=== PATIENT | female | born 1990 | race Caucasian/White ===

== ENCOUNTER 2018-11-17 13:27 | Emergency (ER) | payer SELFPAY ==
[~2018-11-17] VITALS: Ht 154.9 cm; Wt 61.2 kg
--- NOTE | 2018-11-17 13:45 | NUR ---
ED Nurse Note: MD at bedside. Patient also mentioned that she had episodes of vomiting x3 and also diziness when getting up and walking fast.
--- NOTE | 2018-11-17 13:45 | NUR ---
ED Nurse Note: Patient walked in to ER. Per patient after she was feeding her dog, she stepped back not realizing that there is a step behind her. She stated that she tripped and fall and landed her her back of her head first. She said it was a hard fall. Patient noted slight redness on her parietal area and pain of 6/10.
[2018-11-17 13:50] VITALS: BP 110/86
--- NOTE | 2018-11-17 13:58 | NUR ---
ED Nurse Note: Patient was brought to CT scan for CT head
--- NOTE | 2018-11-17 14:10 | NUR ---
ED Nurse Note: Patient came back to the room from CT room
--- NOTE | 2018-11-17 14:15 | Emergency Room Report ---
History of Present Illness General Chief Complaint: Multiple Trauma/Fall Source: Patient Present Illness HPI 27-year-old female presents to the emergency department complaining of 6 out of 10 severity posterior head pain, tender, smiling in addition to dizziness, nausea, vomiting, foggy mentation status post acute head injury when she fell off of her porch and hit her head on the concrete ground. Denies LOC. Patient denies open wounds or bleeding she denies taking blood thinning medications. Patient denies midline neck or back pain. Denies numbness tingling or loss of sensation or gross motor movements of the extremities, incontinence of bowel or bladder. Denies CP, Palpitations,AMS, dizziness, Changes in Vision, weakness or a sudden severe headache. Allergies: Coded Allergies: No Known Allergies (Unverified , 11/17/18) Patient History Past Medical History: see triage record Past Surgical History: none Pertinent Family History: none Now: No Immunizations: UTD Reviewed Nursing Documentation: PMH: Agreed; PSxH: Agreed Nursing Documentation-PMH Past Medical History: No Stated History Review of Systems All Other Systems: negative except mentioned in HPI Physical Exam Vital Signs Date Time Temp Pulse Resp B/P (MAP) Pulse Ox O2 Delivery O2 Flow Rate FiO2 11/17/18 13:43 97.9 95 16 107/74 (85) 96 Room Air Sp02 EP Interpretation: reviewed, normal General Appearance: no apparent distress, alert, GCS 15, non-toxic Head: normocephalic, other - TTP, Swelling to the occipetal right side. Eyes: bilateral eye normal inspection, bilateral eye PERRL, bilateral eye EOMI ENT: hearing grossly normal, normal voice Neck: full range of motion, no bony tend Respiratory: lungs clear, normal breath sounds, speaking full sentences Cardiovascular #1: regular rate, rhythm Genitourinary: normal inspection Musculoskeletal: back normal, gait/station normal, normal range of motion, non- tender Neurologic: alert, oriented x3, responsive, motor strength/tone normal, sensory intact, speech normal, no pronator, grossly normal, other - notable delay in response time. , grossly normal Psychiatric: judgement/insight normal Skin: other - mild swelling/ttp/ Soft tissue of the posterior scalp. Lymphatic: no adenopathy Medical Decision Making PA Attestation Dr. Jean Baptiste Is my supervising Physician whom patient management has been discussed with. Diagnostic Impression: Primary Impression: Concussion Qualified Codes: S06.0X0A - Concussion without loss of consciousness, initial encounter ER Course 27-year-old female presents to the emergency department complaining of 6 out of 10 severity posterior head pain, tender, smiling in addition to dizziness, nausea, vomiting, foggy mentation status post acute head injury when she fell off of her porch and hit her head on the concrete ground. Denies LOC. Patient denies open wounds or bleeding she denies taking blood thinning medications. Patient denies midline neck or back pain. Denies numbness tingling or loss of sensation or gross motor movements of the extremities, incontinence of bowel or bladder. Denies CP, Palpitations,AMS, dizziness, Changes in Vision, weakness or a sudden severe headache. Ddx considered but are not limited to AHI, SAH, Subudral hematoma, Fracture, dislocation, contusion, concussion Sprain/Strain/Spasm, hematoma Vital signs: are WNL, pt. is afebrile H&PE are most consistent with contusion, no evidence of focal neurological deficit, no loss of consciousness. ORDERS: - CT HEAD NO CONTRAST: No acute process ED INTERVENTIONS: -Tylenol PO Pt. Education: Discussed red flag symptoms to keep an eye out for that would indicate prompt return to the ED. d/w pt. avoidance of additional head trauma for several weeks. DISCHARGE: At this time pt. is stable for d/c to home. Will provide printed patient care instructions, and any necessary prescriptions. Care plan and follow up instructions have been discussed with the patient prior to discharge. CT/MRI/US Diagnostic Results CT/MRI/US Diagnostic Results : Imaging Test Ordered: CT HEAD NO CONTRAST Impression " No evidence of acute fracture, hemorrhage, or intracranial process". Per official radiology report- Please see report for specific details. Last Vital Signs Date Time Temp Pulse Resp B/P (MAP) Pulse Ox O2 Delivery O2 Flow Rate FiO2 11/17/18 13:43 97.9 95 16 107/74 (85) 96 Room Air Status: improved Disposition: HOME, SELF-CARE Condition: Stable Scripts Ondansetron Odt* (ZOFRAN ODT*) 4 Mg Tab.rapdis 4 MG BC EVERY 6 HOURS PRN for Nausea & Vomiting, #10 TAB 0 Refills Prov: Dorina Lindo 11/17/18 Acetaminophen* (TYLENOL EXTRA STRENGTH*) 500 Mg Tablet 500 MG ORAL Q6H, #30 TAB 0 Refills Prov: Dorina Lindo 11/17/18 Referrals: NOT CHOSEN IPA/MD,REFERRING (PCP) Departure Forms: Return to Work Return to Work Date: Nov 20, 2018 Work Restrictions: None Return to Full Activity: Nov 20, 2018 Patient Instructions: Concussion, Adult Additional Instructions: Take medications as directed. Follow up with a Primary Care Provider or Neurologist in 3-5 days, even if your symptoms have resolved. --Please review list of primary care clinics, if you do not already have a primary care provider Return sooner to ED if new symptoms occur, or current symptoms become worse. - Please note that this Emergency Department Report was dictated using [employer]bitclass[employer] aide technology software, occasionally this can lead to erroneous entry secondary to interpretation by the dictation equipment. Dorina Lindo Nov 17, 2018 14:15
--- NOTE | 2018-11-17 14:43 | Diagnostic Imaging Report ---
Indications: Trauma, status post fall today, headache Technique: Spiral acquisitions obtained through the brain. Angled axial and coronal 5 x 5 mm slices were reconstructed. Total dose length product 1316 mGycm. CTDI vol(s) 60 mGy. Dose reduction achieved using automated exposure control Comparison: None. Findings: No acute intracranial hemorrhage or edema. No mass effect or midline shift. Normal miller-white differentiation. Normal size ventricles and extra axial CSF spaces. Intact calvarium. The mastoids are clear. The visualized orbits and sinuses are unremarkable. Impression: Negative The CT scanner at [facility] is accredited by the [employer] and the scans are performed using protocols designed to limit radiation exposure to as low as reasonably achievable to attain images of sufficient resolution adequate for diagnostic evaluation.
[2018-11-17] MEDS ORDERED: TYLENOL EXTRA500 MG ORAL (15:22)
[2018-11-17] MEDS ORDERED: ONDANSETRON ODT4 MG BC (15:22)
--- NOTE | 2018-11-17 15:30 | NUR ---
ER DISCHARGE NOTE: Patient is cleared to be discharged per ERMD, pt is aox4, on room air, with stable vital signs. pt was given dc and prescription instructions, pt was able to verbalize understanding, pt id band removed. pt is able to ambulate with steady gait. pt took all belongings.
[2018-11-17 15:33] VITALS: BP 122/84
== END 2018-11-17 15:30 | disposition home or self-care (01) ==
LOC: EMR 13:45
DX: S06.0X0A Concussion without loss of consciousness, initial encounter (principal); W18.30XA Fall on same level, unspecified, initial encounter; Y92.007 Garden or yard of unspecified non-institutional (private) residence as the place of occurrence of the external cause
CPT/HCPCS: 70450; 99284